=== PATIENT | male | born 1955 | race Caucasian/White ===

== ENCOUNTER 2023-04-30 03:39 | Emergency (ER) | payer MEDICAID, SELFPAY ==
[2023-04-30 04:00] VITALS: BP 172/84; PULSE 86; RESP 20; TEMP 36.7; BMI 26.6
--- NOTE | 2023-04-30 04:37 | ED.EYEPROB1 ---
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 and he thought that he had something got in his eyes, he started scratching and he washed his eyes as well but he felt his eyes irritated and that mostly was his only his left eye, the patient have sensitivity to light in addition to some blurry vision Related Data Previous Rx's Medication Instructions Recorded erythromycin 5 mg/gram (0.5 %) eye 0.5 inch ophthalmic (eye) Q4H #3.5 04/30/23 ointment grams meloxicam 15 mg tablet 15 mg PO DAILY PRN pain #10 tabs 04/30/23 Allergies Allergy/AdvReac Type Severity Reaction Status Date / Time No Known Drug Allergies Allergy Verified 04/30/23 04:04 Review of Systems ROS Status of ROS 10 or more systems reviewed and unremarkable except as noted in history and below PFS PFS Social History Smoking status: Current every day smoker Exam Narrative Exam Narrative: Nurses notes and vital signs reviewed and patient is not hypoxic. General: Well-appearing and in no apparent distress. Skin: Warm, dry, no pallor noted. No rash. Head: Normocephalic, atraumatic. Neck: Supple, non-tender. Eye: Pupils are equal, round the patient right eye examination was benign left eye examination shows that the patient have conjunctiva that is erythematous in the lower eyelids on the left side in addition to a small abrasion to the left side of the cornea is noted, after applying tetracaine and fluorescein dye the patient had 2 mm linear abrasion to the left side of the cornea No leaking signs or any signs of puncture Ears, Nose, Mouth, and Throat: TM are clear, no nasal mucosal hypertrophy. Oral mucosa is moist, no posterior oropharynx erythema, uvula is mid-line Cardiovascular: Regular Rate and Rhythm without murmur, gallop or rub. Respiratory: No accessory muscle use or respiratory distress. Lungs are clear to auscultation, no wheezing, rales or rhonchi Chest Wall: no tenderness Back: No midline thoracic or lumbar vertebral tenderness. No CVA tenderness Musculoskeletal: normal ROM, no calf or popliteal tenderness, no lower extremity edema/swelling GI: Abdomen is soft, non-distended. Normal bowel sounds. No masses appreciated. No tenderness to palpation. No rebound, guarding, or rigidity noted. Neurological: A&O x4. No cranial nerve dysfunction observed. No truncal ataxia. Moves all extremities. Sensation intact. Psychiatric: Cooperative and interactive. Normal mood and affect. Constitutional Vital Signs, click to edit/add: Last Vital Signs Temp 98.0 F 04/30/23 04:00 Pulse 86 04/30/23 04:00 Resp 20 04/30/23 04:00 BP 172/84 H 04/30/23 04:00 Course Vital Signs Vital signs: Vital Signs Temperature 98.0 F 04/30/23 04:00 Pulse Rate 86 04/30/23 04:00 Respiratory Rate 20 04/30/23 04:00 Blood Pressure 172/84 H 04/30/23 04:00 Temperature 98.0 F 04/30/23 04:00 Pulse Rate 86 04/30/23 04:00 Respiratory Rate 20 04/30/23 04:00 Blood Pressure 172/84 H 04/30/23 04:00 MDM - Eye Problem MDM Narrative Medical decision making narrative: The patient was feeling much better after tetracaine was applied and examination shows abrasion to the cornea, I started the patient on erythromycin that he is to continue that for the next 5 days The patient also to follow-up with ophthalmology for which he was referred on Monday morning The patient to come back to the ER in case of any new symptoms or worsening of his current symptoms Discharge Plan Discharge Chief Complaint: Eye Problems Clinical Impression: Abrasion, corneal Patient Disposition: Home, Self-Care Time of Disposition Decision: 04:38 Condition: Good Prescriptions / Home Meds: New erythromycin 5 mg/gram (0.5 %) ointment 0.5 inch ophthalmic (eye) Q4H Qty: 3.5 0RF Rx Instructions: apply to the left eye q4 hrs for 7 days meloxicam 15 mg tablet 15 mg PO DAILY PRN (Reason: pain ) Qty: 10 0RF Instructions: Corneal Abrasion (ED) Stand Alone Forms: Portal Instructions Referrals: Gonzalez Brown MD [Physician] - As soon as possible Physician,Non-Staff, [Primary Care Provider] - 1 week
[2023-04-30] MEDS: FLUORESCEIN SODIUM 1 MG STRIP OP (04:53)
[2023-04-30] MEDS: ERYTHROMYCIN OP OINT 0.5% 1 GM TUBE OP (04:53)
--- NOTE | 2023-04-30 06:38 | PC.NURSE ---
Patient returned to ER approx 20 min after leaving. Had not been discharged from board yet. Returned for continued pain. Dr wanted him to continue on same chart because she was just going to send in another RX for eye drops. Did give him a Percocet to go for pain.
== END 2023-04-30 06:35 | disposition home or self-care (01) ==
PROVIDERS: Emergency Provider Emergency Medicine
DX: S05.02XA Injury of conjunctiva and corneal abrasion without foreign body, left eye, initial encounter (principal); X58.XXXA Exposure to other specified factors, initial encounter; F17.210 Nicotine dependence, cigarettes, uncomplicated
CPT/HCPCS: 99283

== ENCOUNTER 2023-04-30 05:49 | Emergency (ER) | payer MEDICAID, SELFPAY | END 2023-04-30 07:08 | disposition home or self-care (01) | LOC: ER 05:53 | PROVIDERS: Emergency Provider Emergency Medicine | DX: Z53.8 Procedure and treatment not carried out for other reasons (principal) ==

== ENCOUNTER 2025-02-05 19:13 | Emergency (ER) | payer MEDICAID, SELFPAY ==
[2025-02-05 19:16] VITALS: BP 170/85; PULSE 81; TEMP 36.5; O2SAT 97; BMI 28.1
[2025-02-05 19:38] VITALS: O2SAT 97
--- NOTE | 2025-02-05 19:52 | ED_ITS ---
HPI - Skin/Abscess/Foreign Bdy General Chief complaint: Skin/Abscess/Foreign Body Stated complaint: RASH Time Seen by Provider: 02/05/25 19:32 Source: patient Mode of arrival: walk-in Limitations: no limitations History of Present Illness HPI narrative: This 69-year-old male presents for evaluation of a pruritic rash that has been present for around 6 months. The patient thinks that he has scabies. He has multiple sores and excoriated areas on his forearms and back of his neck, few on his abdominal wall and hands. The patient states the symptoms started after he had spent the night in a hotel in [place]. He has no difficulty breathing or swallowing. He ordered permethrin cream online and use that as well as tea tree oil. He states he feels that is working somewhat but his itching is intense. He has not seen any bugs in his house. He states that he cleans all of his close and is very fastidious at home. He did make an appointment with a inspector tubes but that appointment is not available for 1 month. He request ivermectin and permethrin cream. I explained to him that I will not prescribe ivermectin as it is a veterinary medication Related Data Previous Rx's ?Medication ?Instructions ?Recorded cyclopentolate 0.5 % eye drops 1 drp ophthalmic (eye) TID PRN 04/30/23 pain 2 days #5 mL erythromycin 5 mg/gram (0.5 %) eye 0.5 inch ophthalmic (eye) Q4H #3.5 04/30/23 ointment grams meloxicam 15 mg tablet 15 mg PO DAILY PRN pain #10 tabs 04/30/23 Allergies Allergy/AdvReac Type Severity Reaction Status Date / Time No Known Drug Allergies Allergy Verified 02/05/25 19:29 Review of Systems ROS Status of ROS 10 or more systems reviewed and unremark able except as noted in history and below PFSH PFSH Social History Smoking status: Current every day smoker Little interest or pleasure in doing things: not at all Feeling down, depressed, or hopeless: not at all Exam Narrative Exam Narrative: Vital signs and Nursing Notes reviewed: Patient is afebrile with a normal pulse, blood pressure is elevated at 170/85, he is not hypoxic with pulse ox of 97% on room air General: Awake, alert, oriented, anxious adult male, no respiratory distress HEENT: Normocephalic atraumatic, mucous membranes are moist and pink, eyes are clear, normal conjunctiva, vision is grossly intact, posterior pharynx is normal in appearance, no oral lesions noted Neck: Supple, no meningeal signs, no anterior or posterior cervical lymphadenopathy Chest: Lungs are clear to auscultation with good air entry, there is no wheezing rhonchi or rales appreciated no accessory muscle use, patient is speaking in complete sentences-no chest wall tenderness to palpation CVS: Regular rate and rhythm S1-S2, no murmurs rubs or gallops, pulses are brisk and equal bilaterally ABD: Soft, nondistended, nontender, no rebound guarding or rigidity, bowel sounds are normal, no pulsatile masses appreciated Extremities: Moving all extremities, no lower extremity tenderness or swelling noted, negative Homans' sign, pulses are brisk and equal bilaterally Skin: There are multiple shallow-based macules with small scabs on the patient's forearms, occasional on the hands but none on the hands the webspace between the fingers besides 1 small dry macule. There is no sign of infestation on the patient's skin. There is no sign of cellulitis or abscess. There is no petechia or purpura noted. Neuro: No focal deficits Constitutional Vital Signs, click to edit/add: Last Vital Signs Temp 97.7 F 02/05/25 19:16 Pulse 81 02/05/25 19:16 Resp 18 02/05/25 19:16 BP 170/85 H 02/05/25 19:16 Pulse Ox 97 02/05/25 19:38 O2 Del Method Room Air 02/05/25 19:38 Course Vital Signs Vital signs: Vital Signs Temperature 97.7 F 02/05/25 19:16 Pulse Rate 81 02/05/25 19:16 Respiratory Rate 18 02/05/25 19:16 Blood Pressure 170/85 H 02/05/25 19:16 Pulse Oximetry 97 02/05/25 19:16 Oxygen Delivery Method Room Air 02/05/25 19:16 Temperature 97.7 F 02/05/25 19:16 Pulse Rate 81 02/05/25 19:16 Respiratory Rate 18 02/05/25 19:16 Blood Pressure 170/85 H 02/05/25 19:16 Pulse Oximetry 97 02/05/25 19:38 Oxygen Delivery Method Room Air 02/05/25 19:38 MDM - Skin/Abscess/Foreign Bdy MDM Narrative Medical decision making narrative: This 69-year-old male presents for evaluation of a pruritic rash on his arms and abdomen as well as the back of his neck. He denies any rash in the inguinal area. He states his symptoms started after sleeping in a hotel room in [place] and thinks that he contracted scabies. He has used permethrin cream and is using tea tree oil with mild clinical improvement. He does have an appointment with a inspector tubes next month. He does not have any oral lesions. He does not have any difficulty breathing or swallowing. He is not diabetic. I do not see any signs consistent with scabies but he may have bedbugs. He has not seen any bugs at his house and states he is very fastidious. He does appear to be very clean and well kempt. I agreed to give him prescription for permethrin in addition he was prescribed triamcinolone cream, Medrol Dosepak and Atarax for the itching. I explained to him that I will not prescribe ivermectin. I encouraged him to take cool showers and baths and to use the medications as directed. There is no sign of any cellulitis or abscess despite the longstanding rash he has. Clinically this appears to be more of a dyshidrotic eczema which should hopefully respond to the medications that were prescribed to him. Discharge Plan Discharge Chief Complaint: Skin/Abscess/Foreign Body Clinical Impression: Dyshidrotic eczema, Dermatitis Patient Disposition: Home, Self-Care Time of Disposition Decision: 19:53 Condition: Good Prescriptions / Home Meds: No Action erythromycin 5 mg/gram (0.5 %) ointment 0.5 inch ophthalmic (eye) Q4H Qty: 3.5 0RF Rx Instructions: apply to the left eye q4 hrs for 7 days meloxicam 15 mg tablet 15 mg PO DAILY PRN (Reason: pain ) Qty: 10 0RF cyclopentolate 0.5 % drops 1 drp ophthalmic (eye) TID PRN (Reason: pain) 2 Days Qty: 5 0RF Rx Instructions: please only use for 2 days Print Language: Kyrgyz Instructions: Dyshidrotic Eczema (ED), Dermatitis (ED) Referrals: Physician,Non-Staff, MD [Primary Care Provider] - 1 week
[2025-02-05] MEDS: HYDROXYZINE HCL 25 MG TABLET PO (20:08)
== END 2025-02-05 20:15 | disposition home or self-care (01) ==
PROVIDERS: Emergency Provider Emergency Medicine
DX: L30.1 Dyshidrosis [pompholyx] (principal); L30.9 Dermatitis, unspecified; F17.200 Nicotine dependence, unspecified, uncomplicated
CPT/HCPCS: 99283

== ENCOUNTER 2025-09-05 16:59 | Emergency (ER) | payer SELFPAY ==
--- OUTSIDE RECORDS SUMMARY | 2025-03-19 09:30 | XMS_ITS ---
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 Role Phone Faviola Browning Primary Care Provider [phone] REASON FOR VISIT skin condition f/u Social History Sex Assigned At : Social History Observation Description Sex Assigned At Male Encounters Encounter Location Date Provider Diagnosis Third [address] [place] [place] [address] [place] [address] 03/19/2025 Faviolakaylin Browning Skin rash R21 Assessments Encounter Date Diagnosis (ICD Code) Assessment Notes Treatment Notes Treatment Clinical Notes Section Notes 03/19/2025 Skin rash (ICD-10 - R21) Plan Of Treatment No Information History and Physical Notes * HPI (History of Present Illness) CategorySub-CategoryDetailNotesCategory NotesInterim History Patient seen in clinic today for follow-up regarding ongoing skin concerns. Review of past records indicates he was seen by a colon therapist in July 2024 for similar issues and was prescribed permethrin and Natroba. He was seen again in October 2024, at which time he was prescribed fluocinonide. Per patient report, only permethrin and Natroba provided relief. At the October visit, a shave biopsy was performed, and the differential diagnosis included eczema, scabies, or prurigo nodularis (PN). He was sent home with topical steroids and instructed to continue both Natroba and permethrin. However, follow-up care was disrupted when the patient lost his insurance. At his initial visit with me, I restarted treatment with permethrin cream, to be applied once, withthe option to repeat in 7 days if needed. I also prescribed oral ivermectin to address any potential parasitic etiology. He is being seen today for follow-up of these skin concerns. Examination CategorySub-CategoryDetailNotesCategory NotesGeneral ExaminationGeneral appearance:alert, pleasant, well-nourished and in no acute distressHead: normocephalic, atraumaticEyes:pupils equal, round, reactive to light and accommodationEars:auditory canal clear, tympanic membrane intact and clear bilaterallyNose:nares patent , no lesions , sinuses nontender bilaterallyHeart: regular rate and rhythm without murmurs, gallops, clicks or rubsLungs:clear to auscultation bilaterally, with good air movement and no rales, rhonchi or wheezesAbdomen:umbilical hernia present non tender, reducilbleSkin: Skin: Evidence of excoriations No active vesicles, crusting, or signs of secondary infection noted. Skin texture otherwise intact. Extremities:normal extremity with no clubbing, cyanosis or edema , full range of motionPsych:alert and oriented x 3 , cooperative with exam , maintains good eye contact , normal affect / mood , speech is clear and coherentOral cavity:tongue is midline , palate normal , mucosa moist Progress Notes * AUBREYAd ROSA RobbOB:[birth year] (69 yo M)Acc No.[id number]:03/19/2025 Medical Note Patient: Ad Day :?LIDIA CarlOB:1955???Age:69 Y ???Sex:MaleDate:03/19/2025Phone:[phone]:[address] [place], [place] [id number] Subjective: * Chief Complaints: * S kin condition f/u * HPI: ???Interim History:?Patient seen in clinic today for follow-up regarding ongoing skin concerns. Review of past records indicates he was seen by a colon therapist in July 2024 for similar issues and was prescribed permethrin and Natroba. He was seen again in October 2024, at which time he was prescribed fluocinonide. Per patient report, only permethrin and Natroba provided relief. At the October visit, a shave biopsy was performed, and the differential diagnosis included eczema, scabies, or prurigo nodularis (PN). He was sent home with topical steroids and instructed to continue both Natroba and permethrin. However, follow-up care was disrupted when the patient lost his insurance. At his initial visit with me, I restarted treatment with permethrin cream, to be applied once, withthe option to repeat in 7 days if needed. I also prescribed oral ivermectin to address any potential parasitic etiology. He is being seen today for follow-up of these skin concerns. * ROS: ???Negative except mentioned above in the HPI. Objective: * Examination: ???General Examination: ?General appearance:?alert, pleasant, well-nourished and inno acute distress.?Head:?normocephalic, atraumatic.?Eyes:?pupils equal, round, reactive to light and accommodation.?Ears:?auditory canal clear, tympanic membrane intact and clear bilaterally.?Nose:?nares patent , no lesions , sinuses nontender bilaterally.?Oral cavity:?tongue is midline , palate normal , mucosa moist.?Skin:?Skin: ?* Evidence ofexcoriations? * No active vesicles, crusting, or signs of secondary infection noted. ? * Skin texture otherwise intact. ? .?Heart:?regular rate and rhythm without murmurs, gallops, clicks or rubs.?Lungs:?clear to auscultation bilaterally, with good air movement and no rales, rhonchi or wheezes.?Abdomen:?umbilical hernia present non tender, reducilble. ?Extremities:?normal extremity with no clubbing, cyanosis or edema , full range of motion.?Psych:?alert and oriented x 3 , cooperative with exam , maintains good eye contact , normal affect / mood , speech is clear and coherent.??? Assessment: * Assessment: 1.?Skin rash - R21 (Primary)??? * Electronic signature of Faviola Browning MD on 09/05/2025 at 05:13 PM ESTSign off status: Pending * Provider: Tremayne Browning MD Date: 0 03/19/2025 Generated for Printing/Faxing/eTransmitting on:?09/05/2025 05:13 PM EST
[2025-09-05 17:05] VITALS: BP 153/80; PULSE 86; TEMP 36.7; O2SAT 96; BMI 26.6
--- OUTSIDE RECORDS SUMMARY | 2025-09-05 17:13 | XMS_ITS | Clinical Summary ---
Author Organization [facility] Address [address] [place] [address] Care Team Providers Care Assistant Infant Toddler Teacher Name Role Phone Darryl Lema MD Primary Care Provider [phone] Allergies No known active allergies Medications MedicationSigDispense QuantityRefillsLast FilledStart DateEnd DateStatus naloxone 4 MG/0.1ML 1 spray by Nasal route once for 1 dose. [place] into the nose as directed. Call 911. If no response in 2 minutes use a new nasal spray in other nostril. Repeat until help arrives. 1 Each 5Active Additional Information Patient not taking.Reported on 08/19/2025 ivermectin 3 MG tablet Indications:ScabiesTake 5 tablets by mouth As directed. Take 5tablets PO x 1 then repeat in 1 week 10 tablet 5Active Buprenorphine HCl-Naloxone HCl (Zubsolv) 5.7-1.4 MG Tab SL Indications:Narcotic dependence, in remissionPlace 1 tablet under tongue 2 times daily. 60 tablet /6Active Buprenorphine HCl-Naloxone HCl (Zubsolv) 5.7-1.4 MG Tab SL Indications:Narcotic dependence, in remissionPlace 1 tablet under tongue 2 times daily. 60 tablet Discontinued(Reorder) Active Problems ProblemNoted DateDiagnosed DateObesity (BMI 30.0-34.9)06/11/2025Narcotic dependence, in ryhumxlyz26/08/2025hronic pain bgljeehb33/08/2025dmission for long-term opiate analgesic use04/25/2025 Encounters DateTypeDepartmentCare RxqjLaxqzjzfdct30/02/2025 2:10 PM ESTOffice Visit [facility] [address] [place] [address] Darryl Lema MD Narcotic dependence, in remission (Primary Dx); Admission for long-term opiate analgesic use08/12/[address]Tele[address] [place] [address] Magali Miles Wwulxmblvnm74/06/[address]25[address] [place] [address] Magali Miles Medication Syhwhh4307/22/2025 2:30 PM ESTOffice Visit [address] [place] [address] Darryl Lema MD Narcotic dependence, in remission (Primary Dx); Admission for long-term opiate analgesic use07/08/2025 2:00 PM EDTOffice Visit [address] [place] [address] Darryl Lema MD Narcotic dependence, in remission (Primary Dx); Admission for long-term opiate analgesic use06/30/2025Telephone [address] [place] [address] Magali Miles Medication Tjfojieqjc21/13/2025Refill [address] [place] [address] Eloy Lares LPN Narcotic dependence, in ctbuozili48/07/2025 2:00 PM EDTOffice Visit [address] [place] [address] Darryl Lema MD Narcotic dependence, in remission (Primary Dx); Admission for long-term opiate analgesic use; Ehfnvvu4906/24/2025Refill [address] [address] Darryl Lema MD Narcotic dependence, in lzgrxxofe65/24/2025 2:40 PM EDTOffice Visit [address] [address] Darryl Lema MD Narcotic dependence, in remission (Primary Dx); Admission for long-term opiate analgesic use; Scabiesfrom Last 3 Months Social History Tobacco UseTypesPacks/DayYears UsedDateSmoking Tobacco: Every QwdIrufsiildf125 Started: 09/18/1964Passive Smoke Exposure: CurrentSmokeless Tobacco: Never Tobacco Cessation:Ready to Q uit: Not Asked; Counseling Given: Not Answered Alcohol UseStandard Drinks/WeekCommentsNot Currently0 (1 standard drink = 0.6 oz pure alcohol)AUDIT-CAnswerDate RecordedQ1: How often do you have a drink containing alcohol?Never04/25/2025Q2: How many drinks containing alcohol do you have on a typical day when you are drinking?Patient does not drink04/25/2025Q3: How often do you have six or more drinks on one occasion?Never04/25/2025 DepressionAnswerDate RecordedPHQ-9 Total Score (Interpretation of Total Score 1- 4 = Minimal depression; 5-9 = Mild depression; 10-14 = Moderate depression; 15- 19 = Moderately severe depression)Sex and Gender InformationValueDate RecordedSex Assigned at BirthNot on fileLegal OdvHgac1310/21/2012 7:46 AM EST Gender IdentityNot on fileSexual OrientationNot on file Last Filed Vital Signs Vital SignReadingTime TakenCommentsBlood Ectsmjri015/6208/19/2025 2:27 PM EST Cltmx278008/19/2025 2:27 PM GHXZyyzioaadxt70.7 ??C (98 ??F)08/19/2025 2:27 PM EST Respiratory Csys4706 2:12 PM EDTOxygen Yppxkwkdtv05%08/19/2025 2:27 PM ESTInhaled Oxygen Concentration--Gznuym49.8 kg (176 lb)08/19/2025 2:27 PM EST Qknwmh645 cm (5' 3 )08/19/2025 2:27 PM ESTBody Mass Index31.18110/20/2024 2:27 PM EST Plan of Treatment DateTypeDepartmentCare Team (Latest Contact Info)Wufsqtrwwxz26/30/2025 2:00 PM ESTOffice Visit [facility] [address], [place] [phone] Darryl Lema MD [address], [place] [phone] Health MaintenanceDue DateLast DoneCommentsLUNG CANCER AYEOHGIHO19/31/2004 INFLUENZA VACCINE (#1)2025RSV VACCINE (1 - 1-dose 75+ series)2028 HEPATITIS C VIRUS WBODMSLAEYyrigcndsngk69/14/2025BDOMINAL AORTIC ANEURYSM HIGH RISK SCREENDiscontinuedCOLORECTAL CANCER SCREENING DISCUSSIONDiscontinuedCOVID- 19 VACCINEDiscontinuedHEP B VACCINEAged OutNo longer eligible based on patient's age to complete this topicLIPID SCREENINGDiscontinuedPNEUMOCOCCAL VACCINE SERIES DiscontinuedTDAP (ADULT)DiscontinuedTETANUSDiscontinuedZOSTER (SHINGLES) VACCINE Discontinued Goals GoalPatient Goal TypeAssociated ProblemsRecent ProgressPatient-Stated?Author ANURADHA Goal Care PlanMOUDNoDarryl Lema MD Procedures Procedure NamePriorityDate/TimeAssociated DiagnosisCommentsPOCT ALERE DRUG YYIEZPGjzzzfz76/02/2025 3:10 PM EST Admission for long-term opiate analgesic use POCT ALERE DRUG RUPQNBInvhatf68/04/2025 3:33 PM EST Admission for long-term opiate analgesic use POCT ALERE DRUG PDPQRUUwwfdqx02/21/2025 3:11 PM EDT Admission for long-term opiate analgesic use POCT ALERE DRUG DVUTFJYdmxtiz50/07/2025 3:26 PM EDT Narcotic dependence, in remission Admission for long-term opiate analgesic use POCT ALERE DRUG FKRHVWLbpnxou00/24/2025 3:55 PM EDT Admission for long-term opiate analgesic use HEPATITIS A, B, BVdcgl7805/01/2025 5:25 PM EDT Narcotic dependence, in remission from Last 3 Months or Most Recently Relevant to Health Maintenance Results * POCT ALERE DRUG SCREEN (08/19/2025 3:10 PM EST) Only the most recent of5 resultswithin the time period is included. ComponentValueRef RangeTest MethodAnalysis TimePerformed AtPathologist Signature Marijuana (THC), poctNegativeComment:temperature is 92, collection was not witnessedCOCAINE (ASHA), POCTNegativeOpiate, POCNegativeMethamphetamine (mAMP/MET), poctNegativeAmphetamine (AMP), poctNegativeBarbiturates (BAR), poct NegativeMethadone (MTD), poctNegativeEcstasy (MDMA), poctNegativeOxycodone, POC NegativePhencyclidine (PCP), poctNegativePropoxyphene (PPX), poctNegative OXAZEPAM (BZO),POCTNegativeBuprenorphine Glucuronide (BUPG),poctPositive Nortripyline (TCA), poctNegativeSpecimen (Source)Anatomical Location / LateralityCollection Method / VolumeCollection TimeReceived Time08/19/2025 3:10 PM EST Impressions Alma Stallings - 08/19/2025 3:10 PM EST All internal controls are positive Narrative Authorizing ProviderResult TypeResult StatusMichael D Stormont MDPOINT OF CARE TESTINGFinal Result * (ABNORMAL) HEPATITIS A, B, C (05/01/2025 5:25 PM EDT)ComponentValueRef Range Test MethodAnalysis TimePerformed AtPathologist SignatureHep A AB (IGG + IGM) POSITIVE(A)NEGATIVEPREMIER [facility]ALTH [facility] - [address] - [place]Comment:Specimen is positive for HAV, sent to reference lab for HAVAb, IgM. Positive indicates a reactive sample and the presence of HAV Ab, individual has been previously infected or is presumed to be immune to HAV infection.Hep B Surf AGNEGATIVENEGDAYTON VA MEDICAL CENTER - [address] - [place]UC[place]USHepatitis B Core Total AbNFORMERLY GROUP HEALTH COOPERATIVE CENTRAL HOSPITALTIVENEGUNIVERSITY [facility] - [address] - BUC[place]USHep B Surf ABNMEMORIAL [facility] - [address] - [place]UC[place]Comment: Clinical Interpretation of Immune Status ? Negative: ? patient is considered to be not immune to infection with HBV ? Intermediate: ?unable to determine if anti-HBs is present at levels consistent with immunity ? Positive: ? anti-HBs detected, patient is considered to be immune to infection with HBV HEP C AB, DonorNEGATIVENEGATIVEBUCYDAYTON VA [facility] - [address] - [facility]ern (Source)Anatomical Location / LateralityCollection Method / VolumeCollection TimeReceived HctuLcakd07/14/2025 5:25 PM EDT05/01/2025 5:25 PM EDT Narrative Authorizing ProviderResult TypeResult StatusDarryl Lema MDIMMUNOLOGY ORDERABLESFinal ResultPerforming OrganizationAddressCity/State/ZIP CodePhone Number [facility] - [address] - [place] [address] [place] [address] from Last 3 Months or Most Recently Relevant to Health Maintenance Additional Health Concerns Active ProblemsNoted DateDiagnosed DrxcMKHR07/08/2025 Insurance Care Teams Team MemberRelationshipSpecialtyStart DateEnd Date Darryl Lema MD [address] [place] [address] [facility] Ngkikypq09/21/25
--- OUTSIDE RECORDS SUMMARY | 2025-09-05 17:13 | XMS_ITS | Patient Health Record ---
Author Organization [facility] vices Address [address] [place], [place] [id number] Care Team Providers Care Industrial Diamond Polisher Name Role Phone Faviola Browning Primary Care Provider [phone] Allergies No Known Allergies Results Component Value Reference Range Notes COMPREHENSIVE METABOLIC PANE L Reviewed date:03/12/2025 10:34:06 PM Interpretation: Performing Lab: Notes/Report: PERFORMED AT [facility] [address],[place] [address] not use a race coefficient. CKD-EPI 2020 equation that does Reported eGFR is based on the SODIUM 138 134-146 mmol/L POTASSIUM3.73.5-5.0 mmol/AKTNDLDXR08476-086 mmol/LCARBON IQQIRWA0285-23 mmol/L ANION UCT14-94 mmol/LBLOOD UREA KQFZIIPD507-53 mg/dLCREATININE0.930.60-1.30 mg/dLMETHOD TRACEABLE TO IDMS MUJBUUEZONRBHUD1425-22 mg/dLCALCIUM9.18.5-10.5 mg/dLTOTAL PROTEIN6.96.0-8.0 g/dLALBUMIN4.13.2-5.3 g/dLALKALINE BQUJBNQHWCU4798- 130 U/LAST14<=41 U/LBILIRUBIN,TOTAL0.40.3-1.2 mg/dLALT10<=40 U/LEGFR (CKD-EPI) NON-RACE PGGAUDQWK99>=60 ml/min/1.73sq.m Reason For Referral No Information Medications Medication SIG (Take, Route, Frequency, Duration) Notes Start Date End Date Status Loratadine 10 MG Tablet 1 tablet as needed for itching Orally Once a day; Duration: 30 days As needed 5ActivePermethrin 5 % Cream1 application to entire skin once, can repeat dose after 7 days Externally once; Duration: 1 days5Active Ivermectin 3 MG Tablettake 5 tablets at once Orally once; Duration: 1 days 5Active Social History Tobacco Use: Social History Observation Description Date Details (start date - stop date) Current Smoker [birth year]/28/1965 - NA Sex Assigned At : Social History Observation Description Sex Assigned At Male Social History Social DeterminantsSocial InfoQuestionAnswerNotesPRAPAREDate Completed/Updated: 03/12/2025patient entered dataWhat is your current housing situation?I have housingpatient entered dataAre you worried about losing your housing?No patient entered dataWhat is the highest level of school that you have finished?High school diploma or GEDpatient entered dataWhat is your 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 Check all that applyMedicine or any health care (medical, dental, mental health or vision)Has lack of transportation kept you from medical appointments, meetings, work or from getting things needed for daily living?No How often do you see or talk to people that you care about and feel close to? (For example: talkingto friends on the phone, visiting friends or family, going to scientology or club meetings)More than 5 times a weekpatient entered dataHow stressed are you? Stress is when someone feels tense, nervous, anxious, or can't sleep at nightbecause their mind is troubledQuite a bitpatient entered dataIn the past year have you spent more than 2 nights in a row in a long term, correction, shelter center, orjuvenile correctional facility?Yespatient entered dataAre you a refugee?Nopatient entered dataWhat country are you from?[place] patient entered dataDo you feel physically and emotionally safe where you currently live?Yespatient entered dataIn the past year, have you been afraid of your partner or ex-partner?Nopatient entered dataPRAPARE Score:5PCMH and UDS DemographicsSocial InfoQuestionAnswerNotesPrihale [facility]irm[facility] QuestionsDo you have any barriers to learning?Nonepatient entered dataWhat is your preferred method of learning?Doing or practicingpatient entered dataHow often do you need to have someone help you read instructions?Neverpatient entered dataDrugs/Alcohol/Caffeine:Social InfoQuestionAnswerNotesCAGE-AID Questionnaire (2018 Edition)Have you ever felt that you ought to cut down on your drinking or drug use?Nopatient entered dataHave people annoyed you by criticizing your drinking or drug use?Nopatient entered dataHave you ever felt bad or guilty about your drinking or drug use?Nopatient entered dataHave you ever had a drink or used drugs first thing in the morning to steady your nerves or to get rid of a hangover?Nopatient entered dataCAGE-AID Score0 InterpretationNegativeTobacco Use:Social InfoQuestionAnswerNotesTobacco Use/SmokingTobacco use:current every day smokerpatient entered data? When did you start smoking?08/28/1965patient entered dataAdditional DetailsCategory Social InfoOptionsDetailsMigrated Social HistoryMigrated Social History Barriers to Learning, AttributeTitle: None, ProblemStatus: Active, , Caffeine Use, COMMENTS: Dr Grant 6-8 cans/day, ProblemStatus: Active, , Cultural or yazidi beliefs that would affect your care here?, AttributeTitle: No, ProblemStatus:Active, , Culture/Language Barrier, AttributeTitle: No, ProblemStatus: Active, , Current tobacco use, AttributeTitle: Current every day smoker, COMMENTS: Not interested in quitting, ProblemStatus: Active, , Current tobacco use, AttributeTitle: Has been smoking for 30+ years, COMMENTS: Not interested in quitting, ProblemStatus: Active, , Current tobacco use, AttributeTitle: Has never tried to quit, COMMENTS: Not interested in quitting,ProblemStatus: Active, , Current tobacco use, AttributeTitle: Smokes 1 pack of cigarettes per day, COMMENTS: Not interested in quitting, ProblemStatus: Active, , Current Work/Study Status, AttributeTitle: Full-time, ProblemStatus: Active, , Education Level, AttributeTitle: Grade 7-12, COMMENTS: HS grad, ProblemStatus: Active, , How often do you need to have someone help you read instructions?, AttributeTitle: Never, ProblemStatus: Active, , Learning preference , AttributeTitle: Doing or Practicing, ProblemStatus: Active, , Living Situation, AttributeTitle: Lives with domestic partner, COMMENTS: Ex , ProblemStatus: Active, , Most Recent Primary Occupation, AttributeTitle: Self-Employed, 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, ProblemStatus: Active, , No Drug Use, ProblemStatus: Active, , Non Drinker/No Alcohol Use, ProblemStatus: Active, , Patient feels safe in relationships, ProblemStatus: Active Problems Problem Type SNOMED Code ICD Code Onset Dates Problem Status W/U Status Risk Notes Problem Depression screening (871637007) Screenin g for depression (Z13.31) ActiveconfirmedDescription:Depression screeningProblemBenign prostatic hyperplasia (141302083)BPH (benign prostatic hyperplasia) (N40.0)Activeconfirmed Comment:-urinary frequency, hesitancy, nocturia, and urgency w/o sxs of infection, CVA tenderness, flank pain or suprapubic pain for the last 1 year and sxs getting worse -urine dip is -ve -ordered urine cx, serum creatinine and PSA -sxs most consistent with BPH -started on Finasteride -f/u in 2 weeks, ProblemTenosynovitis of right hand ([id number])Tenosynovitis of right hand (M65.9)Activeconfirmed Comment:-Rt wrist mild swelling and pain for the last one year w/o any injury -pain & swelling along the tendon of 1st Rt digit with passive extension -pain during the night w/o numbness and tingling -Phalen and Tinel tests are -ve -ordered bilat hand & wrist X-Rays -started on Naproxen -immobilize with wrist brace, can use ice for swelling -f/u in 2 weeks, Vital Signs Heart Rate 77 /min 03/12/2025 Ignacia Chu 03/12/2025 03:06:08 PM EDT > Temperature 98.6 degrees Fahrenheit 03/12/2025 Ignacia Jesus 03/12/2025 03:06:08 PM EDT > Respiratory Rate 18 /min 03/12/2025 Sergio Chu 03/12/2025 03:06:08 PM EDT > Height-cm 165.10 cm 03/12/2025 Ignacia Chu 03/12/2025 03:06:08 PM EDT > Oximetry 94 % 03/12/2025 Ignacia Chu 03/12/2025 03:06:08 PM EDT > Blood pressure diastolic 72 mm Hg 03/12/2025 Ignacia William 03/12/2025 03:06:08 PM EDT > Weight-kg 73.21 kg 03/12/2025 Ignacia Chu 03/12/2025 03:06:08 PM EDT > Height 65.00 in 03/12/2025 Ignacia Chu 03/12/2025 03:06:08 PM EDT > Blood pressure systolic 137 mm Hg 03/12/2025 Ignacia Jesus 03/12/2025 03:06:08 PM EDT > Weight 161.4 lbs 03/12/2025 Ignacia Chu 03/12/2025 03:06:08 PM EDT > BMI 26.86 kg/m2 03/12/2025 Ignacia Chu 03/12/2025 03:06:08 PM EDT > Encounters Encounter Location Date Provider Diagnosis [facility] [address] [facility] [place] [address] [place] [address] 03/12/2025 Faviola Nallely Scabies B86 ; Abd ominal hernia K46.9 ; Itching of both hands L29.9 and Financial difficulties Z59.9 [address] [facility] [address] [facility] [place] [address] 03/11/2025 Faviola Nallely [address] [place], [place] [address]/25/2025Ogechi [address] [place], [place] [address]/25/2025Ogechi [address] [place], [place] [address]/02/2025Ogechi [address] [place], [place] [id number] 03/19/2025Ogechi Nallely Assessments Encounter Date Diagnosis (ICD Code) Assessment Notes Treatment Notes Treatment Clinical Notes Section Notes 03/12/2025 Scabies (ICD-10 - B86) Will obtain medical records from the floor framer's office. The patient was provided with printed educational materials on proper hygiene practices for scabies and methods to protect the skin barrier. The patient reports adherence to these recommendations, including daily bed sheet changes and maintaining good personal hygiene. Plan to initiate treatment with oral ivermectin and topical cream. Acmp will be ordered to assess liver function prior to starting ivermectin.The patient's ivermectin dose will be a single oral dose of 200 mcg/kg, which for this patient is 15 mg03/12/2025bdominal hernia (ICD-10 - K46.9)Patient was provided with educational materials regarding the asymptomatic hernia, including instructions on how to monitor it, avoid heavy lfiting and smoking etc , warning signs to watch for, and guidance on when to seek emergency care. These points were also reviewed and reinforced verbally withthe patient. 03/12/2025Itching of both hands (ICD-10 - L29.9)Oral antihistamines were recommended to help control itching. The patient was also advised to use fr agrance-free skin barrier-protecting creams or petroleum jelly to soothe and protect the skin.03/12/2025Financial difficulties (ICD-10 - Z59.9) Plan Of Treatment No Information Medical (General) History Medical History History ICD Code No significant history of medical diseas es, ProblemStatus: Active, , Surgical History Surgery Date(Month/Year) Tonsillectomy, ProblemStatus: Active, Appendectomy, ProblemStatus: Active,
--- OUTSIDE RECORDS SUMMARY | 2025-09-05 17:13 | XMS_ITS | Clinical Summary ---
Author Organization [facility] tem Address [facility] [id number] [address] [place] [address] Care Team Providers Care Supervisor Accounting Clerks Name Role Phone Faviola Browning MD Primary Care Provider [phone] Allergies No known active allergies Medications MedicationSigDispense QuantityRefillsLast FilledStart DateEnd DateStatus ranitidine (ZANTAC) 75 mg tablet Take 75 mg by mouth 2 (two) times a day.Active Social History Tobacco UseTypesPacks/DayYears UsedDateSmoking Tobacco: Some DaysChildcareAnswer Date BbgbfbleHslbinyjgHwrkbir64/12/2019EmploymentAnswerDate RecordedEmployment Hxdxczr1402/27/2019Sex and Gender InformationValueDate RecordedSex Assigned at BirthNot on fileLegal TnxQhys3604/23/2015 11:46 AM EDTGender IdentityNot on file Sexual OrientationNot on file Last Filed Vital Signs Vital SignReadingTime TakenCommentsBlood Bzzyeqxs071/67002/14/2017 3:19 AM EDT Qjocv6923/30/2017 3:19 AM MDOYcmbiqhgcts45.7 ??C (98.1 ??F)02/14/2017 12:33 AM EDTRespiratory Gvkm834502/14/2017 3:19 AM EDTOxygen Xlcgiojsbn71%02/14/2017 3:19 AM EDTInhaled Oxygen Concentration--Mmtydo33.8 kg (165 lb)02/14/2017 12:33 AM AIFQhmqqi185.3 cm (5' 9 )02/14/2017 12:33 AM EDTBody Mass Index24.37002/14/2017 12:33 AM EDT Plan of Treatment Health MaintenanceDue DateLast DoneCommentsDepression Tonmvnhvt32/31/1966Tobacco Qwudffmvt68/31/1966Adult BMI Fzpzoigex95/31/1972DTaP,Tdap and Td Vaccines (1 - Tdap)1972Zoster (Shingles) Vaccine (1 of 2)12/17/2003Fall Risk Screening 2018Influenza Vcsnuql6005/19/2025RSV ( or age 60+ yrs) (1 - 1-dose 75+ series)2028 Medical Devices Not on file Care Teams Team MemberRelationshipSpecialtyStart DateEnd Date Faviola Browning MD [address] [place] [address] PCP - GeneralFamily Medicine03/12/25
[2025-09-05] MEDS: FLUORESCEIN SODIUM 1 MG STRIP OP (17:56)
[2025-09-05] MEDS: TETRACAINE HCL 0.5% OP SOL 80 DROP/4 ML BOTTLE OP (17:56)
--- NOTE | 2025-09-05 18:10 | ED_ITS ---
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 The patient have no blurry vision but he is having irritation of the left eye and he came here to be evaluated after the urgent care told him to come to the ER Related Data Home Medications ?Medication ?Instructions ?Recorded ?Confirmed buprenorphine 5.7 mg-naloxone 1.4 1 tab sublingual EULALIA LY 09/05/25 09/05/25 mg sublingual tablet (Zubsolv) Previous Rx's ?Medication ?Instructions ?Recorded erythromycin 5 mg/gram (0.5 %) eye 0.5 inch ophthalmic (eye) Q4H 5 09/05/25 ointment days #3.5 grams Allergies Allergy/AdvReac Type Severity Reaction Status Date / Time No Known Drug Allergies Allergy Verified 09/05/25 17:04 Review of Systems ROS Status of ROS 10 or more systems reviewed and unremark able except as noted in history and below PFSH PFSH Social History Smoking status: Current every day smoker Little interest or pleasure in doing things: not at all Feeling down, depressed, or hopeless: not at all Exam Narrative Exam Narrative: Nurses notes and vital signs reviewed and patient is not hypoxic. General: Well-appearing and in no apparent distress. Right eye examination was benign left eye examination showed that the patient have irritation of the mostly the lower eyelid medially, the cornea as well as the eye itself does not show any irritation and no ulceration no hyphema no hypopyon nonreactive pupils After applying tetracaine and fluorescein dye the patient have a mild abrasion on the medial aspect of the left eye lower eyelid No tenderness to palpation. No rebound, guarding, or rigidity noted. Neurological: A&O x4. No cranial nerve dysfunction observed. No truncal ataxia. Moves all extremities. Sensation intact. Psychiatric: Cooperative and interactive. Normal mood and affect. Constitutional Vital Signs, click to edit/add: Last Vital Signs Temp 98.1 F 09/05/25 17:05 Pulse 86 09/05/25 17:05 Resp 16 12/19/25 17:05 BP 153/80 H 09/05/25 17:05 Pulse Ox 96 09/05/25 17:05 O2 Del Method Room Air 09/05/25 17:05 Course Vital Signs Vital signs: Vital Signs Temperature 98.1 F 09/05/25 17:05 Pulse Rate 86 09/05/25 17:05 Respiratory Rate 16 09/05/25 17:05 Blood Pressure 153/80 H 09/05/25 17:05 Pulse Oximetry 96 09/05/25 17:05 Oxygen Delivery Method Room Air 09/05/25 17:05 Temperature 98.1 F 09/05/25 17:05 Pulse Rate 86 09/05/25 17:05 Respiratory Rate 16 09/05/25 17:05 Blood Pressure 153/80 H 09/05/25 17:05 Pulse Oximetry 96 09/05/25 17:05 Oxygen Delivery Method Room Air 09/05/25 17:05 MDM - Eye Problem MDM Narrative Medical decision making narrative: Recent exam showed that the patient have irritation of the left lower eyelid medially and there is no foreign body I did had irrigation to the area multiple times with normal saline I did not see any foreign body I did start the patient on erythromycin was referred to ophthalmology as outpatient Patient was instructed about the important follow-up he is to come back to the ER in case of new symptoms or concerns The patient to follow-up with the primary care within 2 to 3 days and to come back to the ER in case of any worsening of the current symptoms or any new symptoms or concerns Discharge Plan Discharge Chief Complaint: Eye Problems Clinical Impression: Foreign body of eyelid, left Patient Disposition: Home, Self-Care Time of Disposition Decision: 18:13 Condition: Good Prescriptions / Home Meds: New erythromycin 5 mg/gram (0.5 %) ointment 0.5 inch ophthalmic (eye) Q4H 5 Days Qty: 3.5 0RF Rx Instructions: apply to the left eye No Action Zubsolv 5.7-1.4 mg tablet, sublingual 1 tab sublingual DAILY Print Language: Italian Instructions: Eye Foreign Body (ED) Referrals: Physician,Non-Staff, MD [Primary Care Provider] - 1 week
[2025-09-05] MEDS: ERYTHROMYCIN OP OINT 0.5% 1 GM TUBE OP (18:20)
== END 2025-09-05 18:50 | disposition home or self-care (01) ==
PROVIDERS: Emergency Provider Emergency Medicine
DX: T15.12XA Foreign body in conjunctival sac, left eye, initial encounter (principal); W44.8XXA Other foreign body entering into or through a natural orifice, initial encounter; F17.200 Nicotine dependence, unspecified, uncomplicated
CPT/HCPCS: 99282